=== PATIENT | female | born 1955 | race Caucasian/White ===

== ENCOUNTER 2019-03-21 14:31 | Emergency (ER) | payer MEDICARE ==
[~2019-03-21] VITALS: Ht 170.2 cm; Wt 71.7 kg
[~2019-03-21 14:31] MED LIST: DITROPAN XL5 MG PO; ESTRADIOL1 MG PO; GABAPENTIN300 MG PO; HYDROXYZINE HCL25 MG PO; IBUPROFEN400 MG PO; KLONOPIN2 MG PO; METOPROLOL TART50 MG PO; NORCO 10-325 T1 EACH PO; TIZANIDINE HCL4 MG PO; TRAZODONE HCL50 MG PO; ZOLOFT50 MG PO
[2019-03-21] MEDS ORDERED: ONDANSETRON HCL INJ 2MG/ML 2ML 2 MG/ML VIAL IV STA (17:34)
[2019-03-21] MEDS ORDERED: HYDROMORPHONE 2MG/ML 2 MG/ML ML IV ONE (17:45)
[2019-03-21] MEDS ORDERED: DIATRIZOATE MEGL/DIATRIZOA SOD 30 ML BTL PO ONE (17:48)
[2019-03-21 18:05] LABS: BASOPHILS % 0.4 % (0.0-1.0); EOSINOPHILS # (AUTO) 0.1 (0.0-0.4); HEMATOCRIT 38.9 % (34.2-44.1); HEMOGLOBIN 12.8 g/dL (12.0-16.0); LYMPHOCYTES # (AUTO) 1.7 (1.0-3.2); LYMPHOCYTES % 32.6 % (18.0-39.1); MEAN CORPUSCULAR HEMOGLOBIN 30.7 pg (28-32); MEAN CORPUSCULAR HGB CONC 32.9 g/dL (31-35); MEAN CORPUSCULAR VOLUME 93.3 fL (81-99); MONOCYTES # (AUTO) 0.4 (0.2-0.8); MONOCYTES % 8.5 % (4.4-11.3); NEUTROPHILS # (AUTO) 2.9 (2.1-6.9); NEUTROPHILS % 57.1 % (38.7-80.0); PLATELET COUNT 176 x10e3/uL (140-360); RED BLOOD COUNT 4.17 x10e6/uL (3.6-5.1); RED CELL DISTRIBUTION WIDTH 12.9 % (11.7-14.4)
[2019-03-21 18:08] LABS: BILIRUBIN,URINE NEGATIVE (NEGATIVE); CLARITY,URINE CLEAR (CLEAR); COLOR,URINE YELLOW (YELLOW); KETONES,URINE NEGATIVE (NEGATIVE); LEUKOCYTE ESTERASE ,URINE NEGATIVE (NEGATIVE); NITRITE,URINE NEGATIVE (NEGATIVE); PROTEIN,URINE DIPSTICK NEGATIVE (NEGATIVE); URINE UROBILINOGEN 0.2 mg/dL (0.2 - 1)
[2019-03-21 18:18] LABS: ANION GAP 9.2 mmol/L (8-16); BLOOD UREA NITROGEN 13 mg/dL (7-26); BUN/CREATININE RATIO 17 (6-25); CALCIUM 10.4 mg/dL (8.4-10.2); CARBON DIOXIDE 30 mmol/L (22-29); CHLORIDE 105 mmol/L (98-107); CREATININE, SERUM 0.78 mg/dL (0.57-1.11); EST GLOMERULAR FILTRATION RATE > 60 ML/MIN (60-); GLUCOSE 79 mg/dL (74-118); POTASSIUM 4.2 mmol/L (3.5-5.1); SODIUM 140 mmol/L (136-145)
[2019-03-21 18:23] LABS: BACTERIA,URINE FEW /HPF; EPITHELIAL CELLS,URINE FEW /LPF
--- NOTE | 2019-03-21 18:41 | NUR ---
patient resting quietly at this time; awaiting CT
--- NOTE | 2019-03-21 18:55 | NUR ---
REPORT GIVEN TO STEFANIA HOLT
[2019-03-21] MEDS ORDERED: SODIUM CHLORIDE 0.9% 50ML 50 ML ONE (19:02)
[2019-03-21] MEDS ORDERED: IOPAMIDOL 370 MG/ML 200 ML INFUS..BTL INJ ONE (19:03)
--- NOTE | 2019-03-21 20:06 | Diagnostic Imaging Report ---
EXAM: CT of the abdomen and pelvis WITH contrast HISTORY: LLQ PAIN, surgical area, kidney removed, left side, surgery June 07, 2018, history of cholecystectomy and appendectomy COMPARISON: None available. TECHNIQUE: The abdomen and pelvis were scanned utilizing a multidetector helical scanner. Coronal and sagittal reformats are provided. PROTOCOL: Routine IV CONTRAST: 100 cc of Isovue-370. ORAL CONTRAST: Dilute Gastrografin RADIATION DOSE: Total DLP: 467.04 mGy*cm Estimated effective dose: (DLP x 0.015 x size factor) Dose modulation, iterative reconstruction, and/or weight based adjustment of the mA/kV was utilized to reduce the radiation dose to as low as reasonably achievable. COMPLICATIONS: None FINDINGS: LOWER THORAX: Unremarkable. HEPATOBILIARY: No mass. No biliary dilation. Metallic clips in the right upper quadrant of the abdomen are compatible with prior cholecystectomy. Mild intrahepatic bile duct and common bile duct prominence, compatible with reservoir effect. SPLEEN: Borderline splenomegaly. PANCREAS: No focal masses or ductal dilatation. ADRENALS: No discrete adrenal nodule. KIDNEYS/URETERS: Postsurgical changes compatible with the provided history of left nephrectomy. No right hydronephrosis, stones, or definite solid mass lesions. PELVIC ORGANS/BLADDER: The uterine bladder is predominantly decompressed, which limits evaluation. GI TRACT: No dilation or wall thickening identified. PERITONEUM / RETROPERITONEUM: No free air or fluid. LYMPH NODES: No pathologically enlarged lymph node. VESSELS: Minimal scattered atherosclerotic vascular calcifications. BONES: No aggressive osseous lesion or acute fracture. SOFT TISSUES: Unremarkable. IMPRESSION: No acute CT abnormality. Signed by: Dr. Farhan Perez D.O., M.M.M. on 03/21/2019 8:02 PM
[2019-03-21 21:40] VITALS: BP 123/56
== END 2019-03-21 21:53 | disposition home or self-care (01) ==
LOC: ER 14:31
DX: G89.28 Other chronic postprocedural pain (principal); R10.32 Left lower quadrant pain; R10.12 Left upper quadrant pain; M54.9 Dorsalgia, unspecified; I10 Essential (primary) hypertension; F32.9 Major depressive disorder, single episode, unspecified; Z88.8 Allergy status to other drugs, medicaments and biological substances; Z90.5 Acquired absence of kidney
CPT/HCPCS: 36415; 74177; 80048; 81001; 85025; 99284; J1170; J2405; Q9967